=== PATIENT | male | born 1995 | race African-American/Black ===

== ENCOUNTER 2017-04-25 09:26 | Emergency (ER) | payer OTHER ==
[~2017-04-25] VITALS: Ht 180.3 cm; Wt 84.1 kg
[2017-04-25 11:58] VITALS: BP 136/71
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
== END 2017-04-25 11:59 | disposition home or self-care (01) ==
LOC: M ED 09:26
DX: S13.4XXA Sprain of ligaments of cervical spine, initial encounter (principal); S00.93XA Contusion of unspecified part of head, initial encounter; S80.02XA Contusion of left knee, initial encounter; S80.212A Abrasion, left knee, initial encounter; V47.1XXA Car passenger injured in collision with fixed or stationary object in nontraffic accident, initial encounter; Y92.89 Other specified places as the place of occurrence of the external cause; F17.210 Nicotine dependence, cigarettes, uncomplicated